=== PATIENT | female | born 1980 ===

== ENCOUNTER 2016-09-18 09:54 | Observation (INO) | payer OTHER, MEDICAID ==
[2016-09-18 09:54] VITALS: BMI 27.4
[2016-09-18 09:58] VITALS: TEMP 97.9; O2SAT 99
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
[2016-09-18] MEDS ORDERED: cefTRIAXone (Rocephin) 250 mg Inj IM STA (14:47)
[2016-09-18 15:17] VITALS: BP 139/75; PULSE 75; RESP 18
[2016-09-18] MEDS ORDERED: cefTRIAXone 250 MG in Lidocaine Hydrochloride 0.9 ML IM ONE (16:00)
== END 2016-09-18 15:10 | disposition home or self-care (01) ==
LOC: C.ER 09:54 → C.9OBSV 11:44
PROVIDERS: ADMIT Emergency Medicine; ATTEND Emergency Medicine
DX: T76.21XA Adult sexual abuse, suspected, initial encounter (principal); F31.9 Bipolar disorder, unspecified; J44.9 Chronic obstructive pulmonary disease, unspecified; Z87.891 Personal history of nicotine dependence